=== PATIENT | male | born 1995 | race Caucasian/White ===

== ENCOUNTER 2019-10-31 20:45 | Emergency (ER) | payer SELFPAY ==
[~2019-10-31] VITALS: Ht 160 cm; Wt 70.5 kg
[2019-10-31 20:46] VITALS: BP 109/72
== END 2019-10-31 22:43 | disposition left against medical advice (07) ==
LOC: M ED 20:45
DX: Z53.21 Procedure and treatment not carried out due to patient leaving prior to being seen by health care provider (principal)